=== PATIENT | female | born 1965 | race Caucasian/White ===

== ENCOUNTER → 2022-09-14 | Outpatient (CLI) | payer BC | LOC: COL.RAD 14:28 | DX: M50.322 Other cervical disc degeneration at C5-C6 level (principal); M50.323 Other cervical disc degeneration at C6-C7 level ==

== ENCOUNTER → 2022-09-14 | Outpatient (CLI) | payer BC | LOC: MHCPAIN 12:50 | DX: M54.2 Cervicalgia (principal); M47.812 Spondylosis without myelopathy or radiculopathy, cervical region; M25.561 Pain in right knee | CPT/HCPCS: G0463 ==

== ENCOUNTER → 2022-10-09 | Outpatient (CLI) | payer BC | LOC: MHCPAIN 14:38 | DX: M54.2 Cervicalgia (principal); M47.812 Spondylosis without myelopathy or radiculopathy, cervical region; M25.561 Pain in right knee | CPT/HCPCS: G0463 ==

== ENCOUNTER → 2023-02-28 | Outpatient (CLI) | payer BC | LOC: MHCPAIN 07:54 | DX: M47.812 Spondylosis without myelopathy or radiculopathy, cervical region (principal); M48.02 Spinal stenosis, cervical region; M54.12 Radiculopathy, cervical region | CPT/HCPCS: J1100; Q9967 ==

== ENCOUNTER → 2023-05-16 | Outpatient (CLI) | payer BC | LOC: MHCPAIN 11:26 | DX: M54.2 Cervicalgia (principal); M79.18 Myalgia, other site; M25.561 Pain in right knee; M47.812 Spondylosis without myelopathy or radiculopathy, cervical region | CPT/HCPCS: G0463 ==

== ENCOUNTER → 2023-07-04 | Outpatient (CLI) | payer BC | LOC: MHCPAIN 09:54 | DX: M54.2 Cervicalgia (principal); M79.18 Myalgia, other site; M25.561 Pain in right knee; M17.11 Unilateral primary osteoarthritis, right knee | CPT/HCPCS: G0463 ==

== ENCOUNTER → 2023-07-29 | Outpatient (CLI) | payer BC | LOC: MHCPAIN 14:27 | DX: M54.2 Cervicalgia (principal); M79.18 Myalgia, other site; M47.812 Spondylosis without myelopathy or radiculopathy, cervical region; M17.11 Unilateral primary osteoarthritis, right knee | CPT/HCPCS: G0463 ==

== ENCOUNTER 2023-09-25 08:48 | Outpatient (RCR) | payer BC | END 2023-09-25 14:10 | disposition home or self-care (01) | LOC: PT.GENESIS 08:48 | DX: M25.561 Pain in right knee (principal); Z96.651 Presence of right artificial knee joint ==

== ENCOUNTER → 2024-03-10 | Outpatient (CLI) | payer BC | LOC: MHCPAIN 10:28 | DX: M54.2 Cervicalgia (principal); M47.812 Spondylosis without myelopathy or radiculopathy, cervical region; M79.18 Myalgia, other site | CPT/HCPCS: G0463 ==